=== PATIENT | male | born 1960 | race Caucasian/White ===

== ENCOUNTER 2016-06-16 21:05 | Emergency (ER) | payer OTHER ==
[~2016-06-16] VITALS: Ht 177.8 cm; Wt 91.9 kg
[2016-06-16 22:37] LABS: ADD MIUA? YES; BILIRUBIN NEGATIVE; BLOOD MODERATE; COLOR YELLOW ((YELLOW)); GLUCOSE (STRIP) NEGATIVE; KETONES NEGATIVE; LEUKOCYTES NEGATIVE; NITRITE NEGATIVE; PH, URINE 5.5 (5-8); PROTEIN (STRIP) NEGATIVE; SPECIFIC GRAVITY 1.022 (1.000-1.030); UROBILINOGEN 0.2 MG/DL (0.2-1.0)
[2016-06-16 22:41] LABS: HEMATOCRIT 42.4 % (38.0-50.0); MCH 31.7 PG (29.0-34.0); MCHC 35.4 G/DL (30.0-36.0); MCV 89.6 FL (86-99); MEAN PLAT.VOLUME 10.3 uM^3 (9.0-12.4); PLATELET COUNT 165 K/uL (156-360); RBC DIS.WIDTH-CV 11.5 % (11.8-14.6); RBC DIS.WIDTH-SD 36.3 % (39-53); RED BLOOD COUNT 4.73 M/uL (4.00-5.50); WHITE BLOOD COUNT 12.3 K/uL (4.1-10.2)
[2016-06-16 22:48] LABS: CHLORIDE 104 mEq/L (99-109); POTASSIUM 4.4 mEq/L (3.7-5.4); SODIUM 136 mEq/L (136-147)
[2016-06-16 22:50] LABS: GLUCOSE 115 mg/dL (70-99)
[2016-06-16 22:51] LABS: ANION GAP 13 MEQ/L (2-14)
[2016-06-16 22:52] LABS: BACTERIA NONE SEEN; CASTS NONE SEEN /LPF; CRYSTALS NONE SEEN; EPITHELIAL CELLS RARE; MUCUS NONE SEEN; PATHOLOGICAL CAST NONE SEEN; SMALL ROUND CELL NONE SEEN; UCUL ADDED? NO; WHITE BLOOD CELLS 0-5 /HPF (0-5); YEAST-LIKE CELL NONE SEEN
[2016-06-16 22:52] LABS: TOTAL BILIRUBIN 0.9 mg/dL (0.0-1.0)
[2016-06-16 22:54] LABS: ALKALINE PHOSPHATASE 80 IU/L (3-129); GFR ESTIMATE (CALCULATED) 51 mL/min/
[2016-06-16 22:55] LABS: UREA NITROGEN (BUN) 17 mg/dL (9-23)
[2016-06-16 22:57] LABS: LIPASE 14 U/L (1.0-51.0)
[2016-06-17] MEDS ORDERED: ZOFRAN ODT4 MG PO (00:10)
[2016-06-17] MEDS ORDERED: MOTRIN800 MG PO (00:10)
[2016-06-17] MEDS ORDERED: COLACE100 MG PO (00:10)
[2016-06-17] MEDS ORDERED: PERCOCET 5/31 TABLET PO (00:10)
[2016-06-17 00:34] VITALS: BP 118/79
== END 2016-06-17 00:36 | disposition home or self-care (01) ==
LOC: EME 21:05 → RME 21:05
PROVIDERS: Physician Assistant
DX: K59.00 Constipation, unspecified (principal); N20.0 Calculus of kidney; I10 Essential (primary) hypertension; Z91.013 Allergy to seafood
CPT/HCPCS: 74176; 74177; 80053; 81003; 83690; 85027; 99281; 99285; J2270; J2405; J7030